=== PATIENT | female | born 1975 | race Caucasian/White ===

== ENCOUNTER 2017-02-17 09:01 | Inpatient (IN) ==
--- NOTE | 2017-02-17 07:56 | Discharge Summary ---
<Arelis Mcnamara L - Last Filed: 02/17/17 07:54> Date of Encounter: 02/17/17 - Discharge Diagnosis (1) Arthritis of knee, right Priority: Primary Status: Acute - Discharge Medications Home Medications: Albuterol Sulfate [Albuterol Inhaler] 2 puff IH Q6HR PRN #1 inhaler 11/19/16 [Rx ] Aspirin Enteric Coated [Aspirin EC] 325 mg PO DAILY #21 tablet.dr 02/17/17 [Rx] Meloxicam [Mobic] 7.5 mg PO DAILY 02/17/17 [History] OxyCODONE Immed Rel [Roxicodone 5 MG] 5 - 10 mg PO Q6HR PRN #40 tablet 02/17/17 [Rx] Allergies/Adverse Reactions: Allergies No Known Allergies Allergy (Verified 02/17/17 09:47) Primary care physician: Charles Bauer MD - Patient Status Disposition: Home, Self-Care Condition: Good - Discharge Instructions Follow Up With: Charles Bauer MD [Primary Care Provider] - - Hospital Course Hospital course: Ms. Ramos is a 41 year old female - Time Spent with Patient Total time spent providing and/or coordinating discharge services: <Ginette Giordano - Last Filed: 02/17/17 09:47> Date of Encounter: 02/17/17 - Discharge Diagnosis (1) Arthritis of knee, right Priority: Primary Status: Acute (2) Asthma Priority: Secondary Status: Acute Qualifiers: Asthma severity: unspecified severity Asthma complication type: uncomplicated Qualified Code(s): J45.909 - Unspecified asthma, uncomplicated (3) History of atrial fibrillation Priority: Secondary Status: Acute Primary care physician: Charles Bauer MD - Hospital Course Hospital course: Ms. Ramos is a 41 year old female - Time Spent with Patient Total time spent providing and/or coordinating discharge services: <Colton Patel - Last Filed: 02/18/17 06:40> Date of Encounter: 02/18/17 Time of Encounter: 06:40 - Discharge Diagnosis (1) Arthritis of knee, right Priority: Primary Status: Acute (2) Asthma Priority: Secondary Status: Acute Qualifiers: Asthma severity: unspecified severity Asthma complication type: uncomplicated Qualified Code(s): J45.909 - Unspecified asthma, uncomplicated (3) History of atrial fibrillation Priority: Secondary Status: Acute Primary care physician: Charles Bauer MD - Patient Status Functional capacity at discharge: uses cane/walker Overall status at discharge: patient is back to baseline - Hospital Course Hospital course: Ms. Ramos is a 41 year old female The patient had an uneventful postoperative course. They received antibiotics and physical therapy and were discharged in stable condition. There will follow -up in the office in 2 weeks. Aspirin DVT prophylaxis patient reports a problem with hyperextension her entire life of her knees. - Time Spent with Patient Total time spent providing and/or coordinating discharge services:
--- NOTE | 2017-02-17 09:09 | History & Physical Report ---
Date of Encounter: 02/17/17 Time of Encounter: 09:09 24 Hour HP Update - Instructions Instructions: If the History and Physical is less than 30 days old and was completed prior to A.M. admission and or procedure and has NOT been updated on calendar day of procedure please complete this update prior to performing procedure. - Update Patient reports changes in Medical Condition: No Changes in examination, assessment, or condition: No Changes in Medication: No Preop tests/diagnostics Reviewed: Yes Surgery Remains Indicated: Yes Consent for Planned Operative Procedure(s) Verified: Yes - Pre-Operative Checklist Preoperative Checklist Indicated: No Prophylactic Antibiotic Ordered: Yes Is VTE Prophylaxis Indicated?: Yes
[2017-02-17] MEDS ORDERED: CeFAZolin Pre 3,000 MG/100 ML 3,000 MG/100 ML BAG IVPB ONE (09:20)
[2017-02-17] MEDS ORDERED: *HR* FentaNYL (PF) 100 MCG/2 ML VIAL ONE ×2 (09:21→11:35)
[2017-02-17] MEDS ORDERED: Dexamethasone 4 MG/ML VIAL ONE (09:21)
[2017-02-17] MEDS ORDERED: Lidocaine -MPF 2% 2 ML VIAL ONE (09:21)
[2017-02-17] MEDS ORDERED: *HR* Propofol 200 MG/20 ML VIAL IVP ONE (09:21)
[2017-02-17] MEDS ORDERED: *HR* Midazolam HCl 2 MG/2 ML VIAL ONE (09:21)
[2017-02-17] MEDS ORDERED: Ondansetron 4 MG/2 ML VIAL ONE (09:21)
[2017-02-17] MEDS ORDERED: Ringers Solution, Lactated 1,000 ML IVC SCH ×2 (09:30→13:53)
--- NOTE | 2017-02-17 09:30 | Anesthesia Evaluation PreOp ---
Date of Encounter: 02/17/17 Time of Encounter: 09:28 - Past History Planned Operation: r tka Cardiac History: Hyperlipidemia, Arrhythmia (h/o af) Pulmonary History: Asthma MANAGER PAYMENT History: Other (r le neuropathy, lumbar ddd) Other Medical History: Denies Any Significant HX Anesthesia History: No Prior Anesthetic Complications, Past Anesthesia (r knee arth, l knee art, cholecyst, hysterect, c/s x2) Alcohol Use: none Drug use: none Medications and Allergies Albuterol Sulfate [Proair Hfa] 1 puff IH Q4-6H PRN 09/20/16 [History] Ipratropium/Albuterol Neb [Duoneb] 3 ml IH Q4HR #30 vial.neb 09/20/16 [Rx] Pravastatin Sodium 10 mg PO QPM 09/27/16 [History] Naproxen [Naprosyn] 500 mg PO BID PRN #15 tablet 10/15/16 [Rx] Albuterol Sulfate [Albuterol Inhaler] 2 puff IH Q6HR PRN #1 inhaler 11/19/16 [Rx ] Beclomethasone Diprop 80mcg [Qvar 80 mcg] 2 puff IH BID #1 puff 11/19/16 [Rx] PredniSONE 40 mg PO DAILY #4 tablet 11/19/16 [Rx] Aspirin Enteric Coated [Aspirin EC] 325 mg PO DAILY #21 tablet. 02/17/17 [Rx] OxyCODONE Immed Rel [Roxicodone 5 MG] 5 - 10 mg PO Q6HR PRN #40 tablet 02/17/17 [Rx] Allergies No Known Allergies Allergy (Verified 11/19/16 19:54) - Meds/Allergy Pre-op Review Medications Reviewed: Yes Allergies Reviewed: Yes Beta Blockers on Current Med List: No Anesthesia Results - Labs Laboratory Tests 02/07/17 02/07/17 02/07/17 13:50 13:50 13:50 Hgb 12.5 Hct 38.9 Plt Count 214 PT 11.0 INR 1.0 APTT 30.5 Sodium 140 Potassium 3.9 Creatinine 0.79 Anesthesia Exam O2 Sat Height 1.7 m Weight 131.088 kg Height: 1.7 Weight: 131 NPO (# of Hours): >8 - HEENT Pupil (Motor): Pupils equal, EOMI Mallampati: II Teeth: Normal Oral Opening: Greater than 3 - MANAGER PAYMENT LOC: Oriented MANAGER PAYMENT Motor: Normal RUE, Normal LUE, Normal LLE, Normal Face, Deficit RLE MANAGER PAYMENT Sensory: Normal: RUE, RLE, LLE, Face, Deficit: LUE - Cardiac Rhythm: Regular Murmur: None - Pulmonary Breath Sounds: bilateral Clear Respiratory Effort: Symmetrical Anesthesia Assess/Plan ASA Score: 3 (lidocaine and ketamine gtt. super mo) Modified Paul Scale for Level of Consciousness: Cooperative, oriented, and tranquil Anesthetic Plan: General Monitoring Plan: Standard Monitors Recovery Plan: PACU
[2017-02-17] MEDS ORDERED: Ondansetron 4 MG/2 ML VIAL IVP PRN (09:32)
[2017-02-17] MEDS ORDERED: Albuterol 2.5 MG/3 ML NEBULIZER IH ONE (09:39)
[2017-02-17] MEDS ORDERED: Albuterol 2.5 MG/3 ML NEBULIZER ONE (09:41)
--- NOTE | 2017-02-17 10:06 | Orthopedic Operative Note ---
Date of procedure: 02/17/17 Pre-op diagnosis: Unstable right total shoulder Post-op diagnosis: same Procedure: Procedure: Right Revision Total Shoulder replacement reverse Estimated blood loss: 100 cc Hardware: Arthrex Revers Base plate: Medium Glenosphere: 39+4 2 4.5 screws 1 6.5 screw Humeral stem: 6 Poly insert: 6 Procedural Notes: Irreparable tear supraspinatus subscapularis Operative procedure: The patient was brought to the operating room and placed on the operating room table. The patient was placed in the modified beachchair position. All pressure points were padded appropriately. And the head was stabilized in the neutral position. The operative extremity was prepped and draped in the sterile surgical fashion. The patient received IV antibiotics prior to skin incision. A standard deltopectoral approach was made to the operative shoulder. Incision was made through the skin and subcutaneous tissue, through the old incision, hemo stasis was obtained with Bovie cautery. Using careful blunt dissection the cephalic vein was identified and mobilized medially. The deltopectoral interval was developed and the clavipectoral fascia was incised. An extensive debridement was performed, and the shoulder was dislocated. Using an osteotome to clear out the soft tissue, the humeral component was gently removed. Anterior and posterior Bankart retractors were used to expose the glenoid, the glenoid component was removed without incident. The glenoid guide was seated the centering hole was made the glenoid was reamed with the appropriate medium reamer. The medium glenoid baseplate was seated and secured with 2 4.5 screws and one 6.5 screw. The baseplate was irrigated and dried the 39+4 was seated and secured. Attention was then turned to the humeral side. The humerus was reamed and broached up to its appropriate size 6 in 20 degrees of retroversion. Trial reduction found the shoulder to be relocatable. Trial components were removed, real implants were seated. Trial reduction found the shoulder to be stable with the appropriate 6 mm. The trial implants were removed the real 6 mm poly- were seated and secured in the shoulder was reduced. The patient had excellent motion and excellent stability no shuck. The deep tissue was irrigated with pulse irrigation deltopectoral interval was closed with #2 PDS suture. Superficially the subcutaneous tissue was closed with 0 PDS suture, the skin was closed with Dermabond. The patient placed sterile dressing, postoperative brace extubated and transferred to the recovery room in stable condition. Anesthesia: GETA Surgeon: Colton Patel Night Shift Supervisor: Arelis Mcnamara Condition: stable Disposition: PACU
[2017-02-17] MEDS ORDERED: ROPIVACAINE HCL/PF 0.5% 30 ML VIAL ONE (10:10)
[2017-02-17] MEDS ORDERED: Tetracaine/PF 20 MG/2 ML AMPUL ONE (10:10)
[2017-02-17] MEDS ORDERED: Ketamine *HR* 500 MG/10 ML MDV ONE (11:08)
--- NOTE | 2017-02-17 12:13 | Orthopedic Operative Note ---
Date of procedure: 02/17/17 Pre-op diagnosis: Right knee arthritis Post-op diagnosis: same Procedure: Procedure: Right Total knee replacement Estimated blood loss: 300 cc Hardware: Arthrex Femur: 5 Tibia: 5 5 mm tibial augments medial and lateral 14 x 100 stem PS insert: 20 mm Patella: 40 Exam Under anesthesia: Hyperextension deformity 15 degrees valgus deformity Procedural Notes: Grade 4 arthritic changes all 3 compartments Operative procedure: The patient was brought to the operating room and placed on the operating room table. After general anesthesia was administered the operative knee was examined. Findings were noted in the exam under anesthesia. The operative extremity was prepped and draped in sterile surgical fashion. The patient received IV antibiotics prior to skin incision. A standard midline incision was made centered over the patella. The incision was made through the skin and subcutaneous tissue. A medial parapatellar tendon approach was performed. Care was taken to preserve tissue along the medial aspect of the patella. And to protect the patella tendon. The deep MCL was released off the medial tibia. The infra patella fat pad was excised. Knee was brought into flexion. Patient noted to have grade 4 changes all 3 compartments The entry hole was made for the intramedullary femoral guide. The guide was seated in 6 degrees of valgus. Anterior cut was made followed by the distal cut. The ACL the PCL the medial and the lateral menisci were excised. The tibia was subluxed forward. The entry hole was made for the intramedullary tibial guide. Guide was seated to resect 2 mm off the more abnormal side. The knee was brought into flexion the distal femur was sized to a 5. The femoral guide was seated, the anterior cut was made followed by the posterior condylar cut, followed by the chamfer cuts. The finishing guide was seated the box cut was made and the lug holes were drilled. The tibia was sized to a 5, the tibial tray was seated and prepared with the large drill followed by the fin cutter. Patient still had hyperextension with the largest Yuridia, decision was made to stem the tibia and used 5 mm augments medial and lateral. This helped limit the hyperextension to full extension. Trial reduction revealed full extension no varus valgus instability with the appropriate 20 PS Yuridia. The patella was everted and cut was made at the level of the insertion of the quadriceps and patella tendon. The patella was sized to a 40 the guide was seated and the lug holes are drilled. Trial reduction revealed excellent patella tracking. All trial components were removed all bony surfaces were irrigated. Tibial components were assembled on the back table. The tibia was cemented first followed by the femur. The 20 PS Yuridia was seated and the knee was brought into full extension. The patella was cemented and held in place with the patellar holding clamp. After the cement had hardened, the knee sat for 2 minutes with a Betadine saline solution. The knee was then irrigated out with 2 L of pulse irrigation. The extensor mechanism was closed with #2 FiberWire suture and #2 PDS suture. The subcutaneous tissue was then irrigated and closed deep with #1 PDS suture superficially with 0 PDS suture and skin was closed with skin matt. The patient was then placed in a sterile dressing and a postoperative brace extubated and transferred to recovery room in stable condition. Anesthesia: BRIANDA Surgeon: Colton Patel Cricket Coach: Ginette Giordano Condition: stable Disposition: PACU
[2017-02-17] MEDS ORDERED: *HR* HYDROmorphone 2 MG/ML SYRINGE ONE (12:20)
[2017-02-17] MEDS: *HR* HYDROmorphone (PF) 1 MG/ML SYRINGE IVP PRN ×6 (12:44→20:04)
[2017-02-17] MEDS ORDERED: *HR* Morphine 2 MG/ML SYRINGE ONE (13:01)
[2017-02-17] MEDS: *HR* Morphine 2 MG/ML SYRINGE IVP PRN ×3 (13:02→13:16)
[2017-02-17] MEDS ORDERED: Ketorolac 30 MG/ML VIAL IVP ONE (13:03)
[2017-02-17] MEDS ORDERED: Acetaminophen IV 1,000 MG/100 ML INFUS..BTL IVPB ONE (13:03)
[2017-02-17 13:08] LABS: Hematocrit 41.2 % (35.3-44.9); Hemoglobin 13.5 g/dL (11.5-15.4)
--- NOTE | 2017-02-17 13:34 | Anesthesia Evaluation Post Op ---
Date of Encounter: 02/17/17 Time of Encounter: 13:34 - Vital Signs Vital Signs: Vital Signs/O2 Sat/Glucose, Most Current Temp Pulse Resp BP Pulse Ox 02/17/17 12:59 99 15 164/91 95 02/17/17 12:49 105 17 156/93 96 02/17/17 12:39 97.7 F 104 16 138/89 97 02/17/17 09:36 98.1 F 83 18 124/89 90 - Lungs Lungs: Clear Ascult./Percussion - Airway Airway: Non-obstructed - Cardiovascular Regular Rate - Mental Status Mental Status: Alert & Oriented, Answers Appropriately - Pain Pain Scale: 3 - Nausea Vomiting Nausea Vomiting: Not Present - Hydration Hydration: Tolerates oral liquids - Discharge PostOp Status: Transfer Patient to floor
[2017-02-17] MEDS ORDERED: Naloxone 0.4 MG/ML INJ IVP PRN (13:53)
[2017-02-17] MEDS ORDERED: *HR* OxyCODONE Immed Rel 5 MG TABLET PO PRN (13:53)
[2017-02-17] MEDS ORDERED: Sennosides 8.6 MG TABLET PO PRN (13:53)
[2017-02-17] MEDS ORDERED: MOM Conc 10 ML UD.LIQ PO PRN (13:53)
[2017-02-17] MEDS ORDERED: Temazepam 15 MG CAPSULE PO PRN (13:53)
[2017-02-17] MEDS: *HR* OxyCODONE Immed Rel 5 MG TABLET PO PRN ×2 (14:27→21:48)
[2017-02-17] MEDS: ceFAZolin 3,000 MG in D5% in Water 100 ML IVPB SCH (17:36)
[2017-02-17] MEDS: *HR* Enoxaparin 30 MG/0.3 ML SYRINGE SQ SCH (17:36)
[2017-02-17] MEDS ORDERED: *HR* Enoxaparin 30 MG/0.3 ML SYRINGE SQ SCH (18:00)
[2017-02-17] MEDS: Ondansetron 4 MG/2 ML VIAL IVP PRN (18:09)
[2017-02-18] MEDS: Ondansetron 4 MG/2 ML VIAL IVP PRN ×2 (00:12→08:59)
[2017-02-18] MEDS: *HR* HYDROmorphone (PF) 1 MG/ML SYRINGE IVP PRN (00:12)
[2017-02-18] MEDS: ceFAZolin 3,000 MG in D5% in Water 100 ML IVPB SCH (00:13)
[2017-02-18] MEDS: *HR* OxyCODONE Immed Rel 5 MG TABLET PO PRN ×3 (04:26→13:16)
[2017-02-18 05:22] LABS: Hematocrit 36.2 % (35.3-44.9)
[2017-02-18 05:35] LABS: Hemoglobin 11.7 g/dL (11.5-15.4)
[2017-02-18 05:57] LABS: BUN/Creatinine Ratio 15 (6-26); Blood Urea Nitrogen 13 mg/dL (7-20); Calcium 8.6 mg/dL (8.6-10.8); Carbon Dioxide 22 mEq/L (19-29); Chloride 103 mEq/L (98-109); Glucose 118 mg/dL (70-99); Osmolality,Calculated 283 (280-300); Sodium 136 mEq/L (136-145); eGFR For African Americans > 60 (> 60); eGFR For Non-African Americans > 60 (> 60)
[2017-02-18] MEDS: *HR* Enoxaparin 30 MG/0.3 ML SYRINGE SQ SCH (06:02)
--- NOTE | 2017-02-18 06:41 | Orthopedics Progress Note ---
Date of Encounter: 02/18/17 Time of Encounter: 06:41 - Assessment and Plan (1) Arthritis of knee, right Current Visit: Yes Status: Acute (2) Asthma Current Visit: Yes Status: Acute Qualifiers: Asthma severity: unspecified severity Asthma complication type: uncomplicated Qualified Code(s): J45.909 - Unspecified asthma, uncomplicated (3) History of atrial fibrillation Current Visit: Yes Status: Acute Subjective Interval history: Patient was seen this morning doing well without complaints. Afebrile vital signs stable. Operative extremity: Neurovascularly intact Dressing clean dry and intact Calves nontender Assessment and plan: Continue with postoperative care Hematocrit 36 discharged today Objective Vital signs: Vital Signs Temp Pulse Resp BP Pulse Ox 02/18/17 05:10 18 99 02/18/17 04:37 98.0 F 88 18 135/80 97 02/17/17 23:42 98.2 F 93 18 133/80 98 02/17/17 19:55 98.0 F 91 17 136/82 97 02/17/17 17:48 85 16 119/73 95 02/17/17 16:55 97.6 F 85 16 119/73 95 02/17/17 15:51 98.1 F 83 16 123/75 96 02/17/17 14:50 97.8 F 78 14 126/67 96 02/17/17 14:21 97.8 F 74 15 134/69 96 02/17/17 13:50 97.7 F 70 14 119/76 96 02/17/17 13:39 97.1 F L 93 15 152/90 95 02/17/17 13:29 104 17 145/91 96 02/17/17 13:19 102 15 147/87 96 02/17/17 13:09 97.1 F L 95 14 144/76 96 02/17/17 12:59 99 15 164/91 95 02/17/17 12:49 105 17 156/93 96 02/17/17 12:39 97.7 F 104 16 138/89 97 02/17/17 09:36 98.1 F 83 18 124/89 90 Intake and Output 02/17/17 02/17/17 02/18/17 15:59 23:59 07:59 Intake Total 200 / 200 Output Total 300 / 300 400 / 400 Balance -300 / -300 -200 / -200 Intake: IV Fluids 100 / 100 Ancef 3,000 MG In 100 / 100 Dextrose 5% 100 ML @ 200 mls/hr IVPB Q8HR USHA Rx#: [id number] Oral 100 / 100 Output: Urine 400 / 400 Estimated Blood Loss 300 / 300 Other: # Voids 1 Weight 131.088 kg - Labs CBC & BMP: 02/18/17 05:06 02/18/17 05:06 Labs: Abnormal lab results Glucose 118 mg/dL (70-99) H 02/18/17 05:06 - VTE Documentation of Mechanical Device: Venous foot pump, device Consult Discharge Plan - Plan Referrals: Charles Bauer MD [Primary Care Provider] -
[2017-02-18 11:26] VITALS: BP 150/76
== END 2017-02-18 15:57 | disposition home or self-care (01) | DRG 470 ==
LOC: SAMDAY 09:01 → 3NENU 13:54
PROVIDERS: ADMIT Orthopaedic Surgery; ATTEND Orthopaedic Surgery